=== PATIENT | female | born 1980 | race Caucasian/White ===

== ENCOUNTER 2017-08-20 17:35 | Emergency (ER) | payer MEDICAID ==
[2017-08-20] MEDS: KETOROLAC 60 MG INJ IM (21:11)
[2017-08-20] MEDS: ONDANSETRON 4 MG TAB PO (21:17)
[2017-08-20] MEDS: HYDROCODONE/APAP (5/325) TAB PO (23:04)
== END 2017-08-20 23:55 | disposition home or self-care (01) ==
LOC: FTE 17:35
DX: G44.209 Tension-type headache, unspecified, not intractable (principal); J45.909 Unspecified asthma, uncomplicated; Z87.798 Personal history of other (corrected) congenital malformations
CPT/HCPCS: 70450; 96372; 99285-25

== ENCOUNTER 2017-09-01 20:02 | Emergency (ER) | payer MEDICAID | END 2017-09-01 23:30 | disposition left against medical advice (07) | LOC: FTE 23:30 | DX: R07.89 Other chest pain (principal); F91.8 Other conduct disorders; J45.909 Unspecified asthma, uncomplicated | CPT/HCPCS: 93005; 99283-25 ==

== ENCOUNTER 2019-04-16 21:00 | Emergency (ER) | payer MEDICAID ==
[2019-04-16] MEDS ORDERED: FAMOTIDINE 20 MG TAB PO (21:31)
[2019-04-16] MEDS ORDERED: KETOROLAC 30 MG INJ IM (21:31)
[2019-04-16] MEDS: ONDANSETRON 4 MG INJ IV (22:42)
[2019-04-16] MEDS: FAMOTIDINE 20 MG INJ IV (22:42)
[2019-04-16 22:43] LABS: ADD MAN DIFF? NO
[2019-04-16 22:48] LABS: WHITE BLOOD COUNT 7.3 10^3/ul (4.8-10.8)
[2019-04-16 22:48] LABS: BASOPHILS % 0.4 % (0.0-2.0); EOSINOPHILS # 0.1 10^3/ul (0.0-0.5); EOSINOPHILS % 1.9 % (0.0-7.0); HEMATOCRIT 41.9 % (37.0-47.0); HEMOGLOBIN 13.8 g/dl (12.0-16.0); LYMPHOCYTES # 2.9 10^3/ul (0.8-2.9); LYMPHOCYTES % 40.2 % (15.0-51.0); MEAN CORPUSCULAR HEMOGLOBIN 31.4 pg (29.0-33.0); MEAN CORPUSCULAR HGB CONC 32.9 g/dl (32.0-37.0); MEAN CORPUSCULAR VOLUME 95.4 fl (82.0-101.0); MEAN PLATELET VOLUME 11.4 fl (7.4-10.4); MONOCYTE # 0.5 10^3/ul (0.3-0.9); MONOCYTES % 6.6 % (0.0-11.0); NEUTROPHIL # 3.7 10^3/ul (1.6-7.5); NEUTROPHILS % 50.8 % (39.0-77.0); PLATELET COUNT 240 10^3/UL (140-415); RED BLOOD COUNT 4.39 10^6/ul (4.20-5.40); RED CELL DISTRIBUTION WIDTH 12.8 % (11.5-14.5)
[2019-04-16] MEDS: KETOROLAC 30 MG INJ IV (22:51)
[2019-04-16 22:54] LABS: ADD UMIC YES; UR ASCORBIC ACID NEGATIVE (NEGATIVE); UR BILIRUBIN (Dip) NEGATIVE (NEGATIVE); UR BLOOD (Dip) 1+ mg/dL (NEGATIVE); UR CLARITY SLIGHTLY CLOUDY (CLEAR); UR COLOR YELLOW (YELLOW); UR GLUCOSE (Dip) NEGATIVE (NEGATIVE); UR KETONES (Dip) NEGATIVE (NEGATIVE); UR LEUKOCYTE ESTERASE (Dip) NEGATIVE Leu/ul (NEGATIVE); UR MUCUS FEW /HPF (NONE SEEN); UR NITRITE (Dip) NEGATIVE (NEGATIVE); UR RBC 1 /HPF (0-5); UR SPECIFIC GRAVITY (Dip) 1.023 (1.003-1.030); UR SQUAMOUS EPITHELIAL CELL FEW /HPF (FEW); UR TOTAL PROTEIN (Dip) NEGATIVE (NEGATIVE); UR UROBILINOGEN (Dip) NEGATIVE (NEGATIVE); UR WBC 2 /HPF (0-5)
[2019-04-16 23:12] LABS: ALANINE AMINOTRANSFERASE 33 IU/L (13-69); ALBUMIN 4.3 g/dl (3.3-4.9); ALBUMIN/GLOBULIN RATIO 1.38; ALKALINE PHOSPHATASE 81 IU/L (42-121); ANION GAP 10 (5-13); ASPARTATE AMINO TRANSFERASE 24 IU/L (15-46); BILIRUBIN,INDIRECT 0.2 mg/dl (0-1.1); BILIRUBIN,TOTAL 0.2 mg/dl (0.2-1.3); BLOOD UREA NITROGEN 20 mg/dl (7-20); CALCIUM 8.6 mg/dl (8.4-10.2); CARBON DIOXIDE 23 mmol/L (21-31); CHLORIDE 110 mmol/L (97-110); CREATININE 0.72 mg/dl (0.44-1.00); Estimated GFR > 60 mL/min (>60); GLUCOSE 81 mg/dl (70-220); LIPASE 75 U/L (23-300); POTASSIUM 3.3 mmol/L (3.5-5.1); SODIUM 143 mmol/L (135-144); TOTAL PROTEIN 7.4 g/dl (6.1-8.1)
[2019-04-16] MEDS: POTASSIUM CHLORIDE (SR) 20 MEQ TAB PO (23:42)
[2019-04-17] MEDS ORDERED: morphine 2 MG INJ IV (00:10)
[2019-04-17] MEDS: morphine 2 MG INJ IV (00:27)
[2019-04-17] MEDS: SOD CHLORIDE 0.9% 1,000 ML IV (00:29)
[2019-04-17] MEDS ORDERED: HYDROCODONE/APAP (10/325) TAB PO (00:30)
[2019-04-17] MEDS: IOHEXOL 300MG/ML 150 ML BTL (00:51)
[2019-04-17] MEDS: SOD CHLORIDE 0.9% 100 ML (00:51)
== END 2019-04-17 01:42 | disposition home or self-care (01) ==
LOC: FTE 04-17 01:42
DX: R10.12 Left upper quadrant pain (principal); J45.909 Unspecified asthma, uncomplicated
CPT/HCPCS: 36415; 74177; 76705; 80053; 81001; 81025; 83690; 85025; 96374; 96375; 99285-25